=== PATIENT | male | born 1945 | race Caucasian/White ===

== ENCOUNTER 2019-07-08 13:55 | Inpatient (IN) | payer MEDICARE, OTHER ==
[~2019-07-08] VITALS: Ht 180.3 cm; Wt 94.5 kg
[2019-07-08] MEDS: SODIUM CHLORIDE 0.9% 1,000 ML IV SCH ×2 (06:00→20:50)
[2019-07-08] MEDS ORDERED: PLEASE ENTER HEIGHT AND WEIGHT MC SCH (14:30)
[2019-07-08] MEDS ORDERED: PLEASE ENTER ALLERGIES MC SCH (14:30)
[2019-07-08 14:33] VITALS: BP 134/77
[2019-07-08] MEDS: HEPARIN 5,000 UNITS/ML, 1ML SQ SCH ×2 (16:22→23:19)
[2019-07-08 16:58] LABS: BASOPHILS # (AUTO) 0.05 x10^3/uL (0-0.1); BASOPHILS % (AUTO) 1 % (0-1); EOSINOPHILS # (AUTO) 0.75 x10^3/uL (0-0.4); EOSINOPHILS % (AUTO) 9 % (1-7); LYMPHOCYTES # (AUTO) 1.93 x10^3/uL (1-3.4); LYMPHOCYTES % (AUTO) 22 % (22-44); MD NO; MEAN PLATELET VOLUME 8.9 fL (7.4-10.4); MONOCYTES # (AUTO) 0.89 x10^3/uL (0.2-0.8); MONOCYTES % (AUTO) 10 % (2-9); NEUTROPHILS # (AUTO) 5.13 x10^3/uL (1.8-6.8); NEUTROPHILS % (AUTO) 59 % (42-75); PLATELET COUNT 264 x10^3/uL (130-400)
[2019-07-08 16:58] LABS: INTERNATIONAL NORMALIZED RATIO 0.92 (0.93-1.1); PROTHROMBIN TIME 9.7 Seconds (9.6-11.5)
[2019-07-08 17:00] LABS: ANION GAP 9 mmol/L (5-15); CALCIUM 8.6 mg/dL (8.5-10.1); CHLORIDE 111 mmol/L (98-107)
[2019-07-08 19:39] VITALS: BP 122/74
[2019-07-08] MEDS: MIRTAZAPINE 15 MG TABLET PO SCH (20:50)
[2019-07-08] MEDS: ATORVASTATIN 40 MG TABLET PO SCH (20:50)
[2019-07-08] MEDS: BUPROPION SR 150 MG TABLET PO SCH (20:50)
[2019-07-08] MEDS: ACETAMINOPHEN 325 MG TABLET PO PRN (23:18)
[2019-07-09 02:17] VITALS: BP 144/71
[2019-07-09] MEDS ORDERED: HYDROcodone/APAP 5/325 TABLET PO PRN (03:00)
[2019-07-09] MEDS: ASPIRIN 81 MG TABLET EC PO SCH (05:13)
[2019-07-09] MEDS: LEVOTHYROXINE 137 MCG TABLET PO SCH (05:13)
[2019-07-09 06:02] LABS: ANION GAP 8 mmol/L (5-15); CHLORIDE 113 mmol/L (98-107)
[2019-07-09 07:20] VITALS: BP 92/54
[2019-07-09] MEDS ORDERED: LISINOPRIL 10 MG TABLET PO SCH (09:00)
[2019-07-09] MEDS: LISINOPRIL 10 MG TABLET PO SCH (09:00)
[2019-07-09] MEDS: TAMSULOSIN 0.4 MG CAP.ER.24H PO SCH (09:03)
[2019-07-09] MEDS: BUPROPION SR 150 MG TABLET PO SCH ×2 (09:03→20:03)
[2019-07-09] MEDS: LIOTHYRONINE 5 MCG TABLET PO SCH (09:03)
[2019-07-09] MEDS: ACETAMINOPHEN 325 MG TABLET PO PRN (09:03)
[2019-07-09] MEDS: GLIPizide ER 5 MG TABLET PO SCH (09:03)
[2019-07-09] MEDS: SODIUM CHLORIDE 0.9% 1,000 ML IV SCH ×3 (09:04→23:36)
[2019-07-09] MEDS: OXYcodone IR 5MG TABLET PO PRN ×3 (10:38→22:42)
[2019-07-09 12:09] VITALS: BP 123/73
[2019-07-09] MEDS ORDERED: HEPARIN 5,000 UNITS/ML, 1ML ONE (12:11)
[2019-07-09] MEDS: HEPARIN 5,000 UNITS/ML, 1ML SQ SCH (12:14)
[2019-07-09] MEDS ORDERED: MIDAZOLAM 1 MG/ML, 2ML ONE (15:35)
[2019-07-09] MEDS ORDERED: BIVALIRUDIN 250 MG ONE (15:36)
[2019-07-09] MEDS ORDERED: HEPARIN 1,000 UNITS/ML, 10ML ONE (15:36)
[2019-07-09] MEDS ORDERED: VERAPAMIL 2.5 MG/ML, 2ML ONE (15:36)
[2019-07-09] MEDS ORDERED: LIDOCAINE-MPF 1%, 5ML ONE (15:36)
[2019-07-09] MEDS ORDERED: FENTANYL PF 100 MCG/2ML ONE (15:36)
[2019-07-09] MEDS: CARVEDILOL 6.25 MG TABLET PO SCH (17:56)
[2019-07-09] MEDS: MIRTAZAPINE 15 MG TABLET PO SCH (20:03)
[2019-07-09] MEDS: ATORVASTATIN 40 MG TABLET PO SCH (20:03)
[2019-07-09 20:05] VITALS: BP 99/64
[2019-07-10] MEDS: SODIUM CHLORIDE 0.9% 1,000 ML IV SCH ×4 (00:47→21:33)
[2019-07-10] MEDS: HEPARIN 5,000 UNITS/ML, 1ML SQ SCH ×2 (01:16→12:30)
[2019-07-10 01:17] VITALS: BP 120/74
[2019-07-10 06:22] VITALS: BP 112/68
[2019-07-10] MEDS: CARVEDILOL 6.25 MG TABLET PO SCH ×2 (06:25→17:54)
[2019-07-10] MEDS: LEVOTHYROXINE 137 MCG TABLET PO SCH (06:25)
[2019-07-10] MEDS: ASPIRIN 81 MG TABLET EC PO SCH (06:25)
[2019-07-10 06:58] VITALS: BP 106/68
[2019-07-10 09:18] LABS: BASOPHILS # (AUTO) 0.06 x10^3/uL (0-0.1); BASOPHILS % (AUTO) 1 % (0-1); EOSINOPHILS # (AUTO) 0.57 x10^3/uL (0-0.4); EOSINOPHILS % (AUTO) 7 % (1-7); LYMPHOCYTES # (AUTO) 1.52 x10^3/uL (1-3.4); LYMPHOCYTES % (AUTO) 18 % (22-44); MD NO; MEAN CORPUSCULAR HEMOGLOBIN 29.7 pg (27.5-34.5); MEAN CORPUSCULAR HGB CONC 32.9 g/dL (33.2-36.2); MEAN CORPUSCULAR VOLUME 90.3 fL (81-97); MEAN PLATELET VOLUME 8.3 fL (7.4-10.4); MONOCYTES # (AUTO) 0.79 x10^3/uL (0.2-0.8); MONOCYTES % (AUTO) 9 % (2-9); NEUTROPHILS % (AUTO) 65 % (42-75); PLATELET COUNT 274 x10^3/uL (130-400); RED CELL DISTRIBUTION WIDTH 14.1 % (9.4-14.8)
[2019-07-10 09:32] LABS: ANION GAP 8 mmol/L (5-15); CALCIUM 8.7 mg/dL (8.5-10.1); CHLORIDE 112 mmol/L (98-107)
[2019-07-10 09:33] LABS: CREATININE 0.88 mg/dL (0.7-1.3)
[2019-07-10] MEDS: LIOTHYRONINE 5 MCG TABLET PO SCH (10:18)
[2019-07-10] MEDS: TAMSULOSIN 0.4 MG CAP.ER.24H PO SCH (10:19)
[2019-07-10] MEDS: GLIPizide ER 5 MG TABLET PO SCH (10:19)
[2019-07-10] MEDS: LISINOPRIL 10 MG TABLET PO SCH (10:19)
[2019-07-10] MEDS: BUPROPION SR 150 MG TABLET PO SCH ×2 (10:19→21:27)
[2019-07-10] MEDS: OXYcodone IR 5MG TABLET PO PRN ×3 (10:32→22:54)
[2019-07-10] MEDS ORDERED: SODIUM CHLORIDE 0.9% 1,000 ML IV SCH (11:00)
[2019-07-10] MEDS ORDERED: MIDAZOLAM 1 MG/ML, 5ML ONE (12:22)
[2019-07-10] MEDS ORDERED: FENTANYL PF 100 MCG/2ML ONE (12:23)
[2019-07-10] MEDS ORDERED: BIVALIRUDIN 250 MG ONE ×2 (12:23→13:04)
[2019-07-10] MEDS ORDERED: VERAPAMIL 2.5 MG/ML, 2ML ONE (12:23)
[2019-07-10] MEDS ORDERED: LIDOCAINE-MPF 1%, 5ML ONE (12:24)
[2019-07-10] MEDS ORDERED: HEPARIN 1,000 UNITS/ML, 10ML ONE (12:24)
[2019-07-10] MEDS ORDERED: NITROGLYCERIN 5 MG/ML, 10ML ONE (13:01)
[2019-07-10] MEDS ORDERED: CLOPIDOGREL 300 MG TABLET ONE (13:01)
[2019-07-10] MEDS ORDERED: BIVALIRUDIN 250 MG in SODIUM CHLORIDE 0.9% 50 ML IV SCH (15:36)
[2019-07-10 17:52] VITALS: BP 100/71
[2019-07-10 18:42] VITALS: BP 115/74
[2019-07-10] MEDS: ATORVASTATIN 40 MG TABLET PO SCH (21:27)
[2019-07-10] MEDS: MIRTAZAPINE 15 MG TABLET PO SCH (21:27)
[2019-07-10 23:47] VITALS: BP 128/65
[2019-07-11] MEDS: HEPARIN 5,000 UNITS/ML, 1ML SQ SCH ×2 (00:42→12:30)
[2019-07-11 03:50] VITALS: BP 101/70
[2019-07-11 04:58] LABS: CHLORIDE 112 mmol/L (98-107)
[2019-07-11 05:03] LABS: ANION GAP 7 mmol/L (5-15); CALCIUM 8.4 mg/dL (8.5-10.1); CREATININE 0.87 mg/dL (0.7-1.3)
[2019-07-11] MEDS: ASPIRIN 81 MG TABLET EC PO SCH (05:10)
[2019-07-11] MEDS: SODIUM CHLORIDE 0.9% 1,000 ML IV SCH (05:10)
[2019-07-11] MEDS: LEVOTHYROXINE 137 MCG TABLET PO SCH (05:10)
[2019-07-11] MEDS: CARVEDILOL 6.25 MG TABLET PO SCH ×2 (05:10→17:35)
[2019-07-11 07:37] VITALS: BP 123/77
[2019-07-11] MEDS: TAMSULOSIN 0.4 MG CAP.ER.24H PO SCH (07:39)
[2019-07-11] MEDS: GLIPizide ER 5 MG TABLET PO SCH (07:39)
[2019-07-11] MEDS: BUPROPION SR 150 MG TABLET PO SCH ×2 (07:39→21:30)
[2019-07-11] MEDS: CLOPIDOGREL 75 MG TABLET PO SCH (07:39)
[2019-07-11] MEDS: LIOTHYRONINE 5 MCG TABLET PO SCH (07:39)
[2019-07-11] MEDS: LISINOPRIL 10 MG TABLET PO SCH (07:39)
[2019-07-11 08:18] LABS: BASOPHILS # (AUTO) 0.04 x10^3/uL (0-0.1); BASOPHILS % (AUTO) 0 % (0-1); EOSINOPHILS # (AUTO) 0.42 x10^3/uL (0-0.4); EOSINOPHILS % (AUTO) 5 % (1-7); LYMPHOCYTES # (AUTO) 1.39 x10^3/uL (1-3.4); LYMPHOCYTES % (AUTO) 15 % (22-44); MD NO; MEAN CORPUSCULAR HEMOGLOBIN 30.2 pg (27.5-34.5); MEAN CORPUSCULAR HGB CONC 33.5 g/dL (33.2-36.2); MEAN CORPUSCULAR VOLUME 90.1 fL (81-97); MEAN PLATELET VOLUME 8.4 fL (7.4-10.4); MONOCYTES # (AUTO) 0.87 x10^3/uL (0.2-0.8); MONOCYTES % (AUTO) 9 % (2-9); NEUTROPHILS # (AUTO) 6.71 x10^3/uL (1.8-6.8); NEUTROPHILS % (AUTO) 71 % (42-75); PLATELET COUNT 279 x10^3/uL (130-400); RED BLOOD COUNT 4.08 x10^6/uL (4.38-5.82); RED CELL DISTRIBUTION WIDTH 13.9 % (9.4-14.8)
[2019-07-11 09:27] LABS: CREATININE 0.96 mg/dL (0.7-1.3)
[2019-07-11 09:37] LABS: MEAN CORPUSCULAR HEMOGLOBIN 30.2 pg (27.5-34.5); MEAN CORPUSCULAR VOLUME 90.3 fL (81-97); RED BLOOD COUNT 4.29 x10^6/uL (4.38-5.82)
[2019-07-11 09:38] LABS: MEAN CORPUSCULAR HGB CONC 33.4 g/dL (33.2-36.2); RED CELL DISTRIBUTION WIDTH 14.2 % (9.4-14.8)
[2019-07-11 12:29] VITALS: BP 113/73
[2019-07-11 17:34] VITALS: BP 120/67
[2019-07-11 19:38] VITALS: BP 107/68
[2019-07-11] MEDS: MIRTAZAPINE 15 MG TABLET PO SCH (21:29)
[2019-07-11] MEDS: ATORVASTATIN 40 MG TABLET PO SCH (21:30)
[2019-07-11] MEDS: OXYcodone IR 5MG TABLET PO PRN (21:30)
[2019-07-12 00:19] VITALS: BP 101/67
[2019-07-12] MEDS: HEPARIN 5,000 UNITS/ML, 1ML SQ SCH ×2 (00:26→12:08)
[2019-07-12 05:35] VITALS: BP 96/62
[2019-07-12] MEDS: ASPIRIN 81 MG TABLET EC PO SCH (05:46)
[2019-07-12] MEDS: LEVOTHYROXINE 137 MCG TABLET PO SCH (05:47)
[2019-07-12] MEDS: ACETAMINOPHEN 325 MG TABLET PO PRN (05:47)
[2019-07-12 07:42] LABS: CREATININE 0.89 mg/dL (0.7-1.3)
[2019-07-12 07:49] VITALS: BP 106/67
[2019-07-12] MEDS: TAMSULOSIN 0.4 MG CAP.ER.24H PO SCH (08:05)
[2019-07-12] MEDS: CLOPIDOGREL 75 MG TABLET PO SCH (08:05)
[2019-07-12] MEDS: LIOTHYRONINE 5 MCG TABLET PO SCH (08:05)
[2019-07-12] MEDS: CARVEDILOL 6.25 MG TABLET PO SCH (08:05)
[2019-07-12] MEDS: LISINOPRIL 10 MG TABLET PO SCH (08:05)
[2019-07-12] MEDS: BUPROPION SR 150 MG TABLET PO SCH (08:06)
[2019-07-12] MEDS: GLIPizide ER 5 MG TABLET PO SCH (08:06)
[2019-07-12] MEDS ORDERED: MIRT-34 PO (13:49)
[2019-07-12] MEDS ORDERED: ATOR40TA78 PO (13:49)
[2019-07-12] MEDS ORDERED: LIOT5TAB10 PO (13:49)
[2019-07-12] MEDS ORDERED: ASPI81TA45 PO (13:49)
[2019-07-12] MEDS ORDERED: LISI-167 PO (13:49)
[2019-07-12] MEDS ORDERED: CARV6.2512 PO (13:49)
[2019-07-12] MEDS ORDERED: GLIP5TAB22 PO (13:49)
[2019-07-12] MEDS ORDERED: CLOP75TA PO (13:49)
[2019-07-12] MEDS ORDERED: TAMS-11 PO (13:49)
[2019-07-12] MEDS ORDERED: OXYC5TAB3 PO (13:49)
[2019-07-12] MEDS ORDERED: LEVO137T2 PO (13:49)
[2019-07-12] MEDS ORDERED: BUPR150T73 PO (13:49)
[2019-07-12 13:56] VITALS: BP 111/64
[2019-07-12] MEDS: OXYcodone IR 5MG TABLET PO PRN (15:34)
== END 2019-07-12 16:54 | DRG 246 ==
LOC: EDSEX 13:55 → 5SO 13:55
PROVIDERS: ADMIT Internal Medicine Infectious Disease; ATTEND Hospitalist
PROC: 4A023N7 Measurement of Cardiac Sampling and Pressure, Left Heart, Percutaneous Approach (ICD-10-PCS; 2019-07-09)
PROC: B211YZZ Fluoroscopy of Multiple Coronary Arteries using Other Contrast (ICD-10-PCS; 2019-07-09)
PROC: 027237Z Dilation of Coronary Artery, Three Arteries with Four or More Drug-eluting Intraluminal Devices, Percutaneous Approach (ICD-10-PCS; principal; 2019-07-10)
DX: I21.4 Non-ST elevation (NSTEMI) myocardial infarction (principal); I42.9 Cardiomyopathy, unspecified; E11.9 Type 2 diabetes mellitus without complications; I25.10 Atherosclerotic heart disease of native coronary artery without angina pectoris; E78.5 Hyperlipidemia, unspecified; E03.9 Hypothyroidism, unspecified; I35.0 Nonrheumatic aortic (valve) stenosis; E66.01 Morbid (severe) obesity due to excess calories; I10 Essential (primary) hypertension; N40.0 Benign prostatic hyperplasia without lower urinary tract symptoms; Z79.02 Long term (current) use of antithrombotics/antiplatelets; Z79.4 Long term (current) use of insulin; Z79.82 Long term (current) use of aspirin; Z79.899 Other long term (current) drug therapy; Z81.8 Family history of other mental and behavioral disorders; Z82.3 Family history of stroke; Z82.49 Family history of ischemic heart disease and other diseases of the circulatory system; Z82.5 Family history of asthma and other chronic lower respiratory diseases; Z86.73 Personal history of transient ischemic attack (TIA), and cerebral infarction without residual deficits; Z87.891 Personal history of nicotine dependence; Z88.2 Allergy status to sulfonamides; Z90.49 Acquired absence of other specified parts of digestive tract; Z68.29 Body mass index [BMI] 29.0-29.9, adult
CPT/HCPCS: 36415; 80048; 85025; 85610; 93005; 93306; 93356; 93454; 93458; 93880; 93970; 99156; 99157; C1760; C1769; C1894; C9600; C9601; G0378; J0583; J1644; J2250; J3010; C1725; C1874; C1887; J7030; Q9967